=== PATIENT | male | born 1990 | race Caucasian/White ===

== ENCOUNTER 2018-07-31 09:05 | Emergency (ER) | payer BC, SELFPAY ==
[2018-07-31 09:43] VITALS: BP 163/100; PULSE 82; RESP 14; TEMP 36.6; O2SAT 98
--- NOTE | 2018-07-31 10:00 | ED.LOWEXIN ---
HPI - Extremity Injury (Lower) General Chief Complaint: Extremity Injury, Lower Stated Complaint: PAIN IN BOTH KNEES Time Seen by Provider: 07/31/18 09:07 Source: patient Mode of arrival: ambulatory Limitations: no limitations History of Present Illness HPI Narrative: Patient is a 27-year-old male here for evaluation of bilateral knee pain. Patient states that the pain started yesterday and got worse today. No specific injury. He has had some lower back pain. No prior pain in the knees in the past. He also complains of bright red blood per rectum. Also complains of problems breathing. He has been seen in the walk-in clinic for his back pain and also his problems breathing. He is on albuterol and QVAR. He has been taking Motrin for his back pain. No other joint pain. No fevers. No rashes. Uses a walking stick to get around. Related Data Home Medications Medication Instructions Recorded Confirmed multivitamin [Multiple Vitamins] 1 tab PO QDAY #0 07/31/16 07/20/18 citalopram 40 mg PO QDAY #0 09/17/16 07/20/18 [echinacea] #0 03/19/17 07/20/18 bupropion HCl [Wellbutrin XL] 150 mg PO QDAY #0 03/19/17 07/20/18 methylphenidate HCl [Concerta] 54 mg PO QAM #0 03/19/17 07/20/18 propranolol 20 mg PO #0 03/19/17 07/20/18 melatonin 3 mg PO HS #0 05/07/17 07/20/18 aripiprazole 2 mg tablet 2 mg PO DAILY 07/07/18 07/20/18 Previous Rx's Medication Instructions Recorded albuterol sulfate [Ventolin HFA] 1 puff INH QIDP PRN #1 ea 08/29/16 [VITAMIN D] 8,000 u PO QDAY #1 bot 09/10/16 pyridoxine (vitamin B6) [Vitamin 50 mg PO QDAY #30 tab 05/07/17 B-6] albuterol sulfate [Ventolin HFA] 2 puff IN SEE INSTRUCTIONS PRN #1 10/23/17 beclomethasone dipropionate 80 See Label Instructions INHALATION 01/05/18 mcg/actuation aerosol inhaler BID #1 inhalation albuterol sulfate HFA 90 2 puff INHALATION Q4-6H PRN #8.5 07/07/18 mcg/actuation aerosol inhaler gram acetaminophen-codeine 1 tab PO Q6H PRN #10 tab 07/31/18 [Tylenol-Codeine #3] benzonatate [Tessalon Perles] 100 mg PO TID PRN #14 cap 07/31/18 meloxicam [Mobic] 7.5 mg PO DAILY #60 tab 07/31/18 Allergies Allergy/AdvReac Type Severity Reaction Status Date / Time No Known Drug Allergies Allergy Unverified 07/20/18 11:56 Review of Systems Constitutional Denies fever(s) and Denies headache(s) ENT Ears, Nose, Mouth, and Throat: Denies vertigo, Denies dizziness and Denies headache(s) Cardiovascular Denies chest pain and Denies dyspnea Respiratory Denies dyspnea Gastrointestinal Gastrointestinal: Denies abdominal pain Comments: Bright red blood per rectum Genitourinary Denies dysuria Musculoskeletal Comments: Bilateral knee pain Integumentary/Breasts Denies lesions and Denies rash Neurologic Denies vertigo, Denies dizziness and Denies headache(s) Hematologic/Lymphatic Comments: Not on anticoagulation PFSH Medical History Healthy adult (Acute) Surgical History History of third molar tooth extraction Family History Brother Age: 44 Mental health disorder Father Age: 66 Diabetes mellitus Heart disease Hypertension Hyperlipidemia Mother Age: 59 COPD (chronic obstructive pulmonary disease) Social History Smoking Status: Never smoker Exam Initial Vital Signs Initial Vital Signs: Vital Signs Temperature 98 F 07/31/18 09:43 Pulse Rate 82 07/31/18 09:43 Respiratory Rate 14 07/31/18 09:43 Blood Pressure 163/100 H 07/31/18 09:43 Pulse Oximetry 98 07/31/18 09:43 Const General: cooperative, healthy appearing, comfortable, well developed and No well groomed Orientation: alert, awake and oriented x3 HENMT Head: normal to inspection and normocephalic GI Rectal Exam: heme negative stool Other: Internal hemorrhoids Skin Lesions: no lesions Rashes: no rashes Neuro General: alert, awake and oriented x3 Gait: normal gait Extrem Other: Bilateral knees with the same exam. ACL MCL PCL and LCL are all intact with functional testing. No tenderness to palpation of the quadriceps tendon or patellar tendon. No hamstring tenderness. No tenderness along the medial lateral joint line. Patient states that his pain is inside no effusions. Psych Appearance: grossly normal and well kempt Course Orders Ordered: Ketorolac Tromethamine (Toradol) 30 mg IM NOW ONE Stop: 07/31/18 10:01 Vital Signs - 8 hr 07/31/18 09:43 Temperature 98 F Pulse Rate 82 Respiratory Rate 14 Blood Pressure 163/100 H Pulse Oximetry 98 MDM - Extremity Injury (Lower) MDM Narrative Medical decision making narrative: Patient with multiple complaints. I do feel that his bilateral knee pain is secondary to his weight and also potentially mechanical changes with walking secondary to his lower back pain. He was given a shot of Toradol here in the emergency department. Will switch him from Motrin to Mobic. Patient also complaining of bright red blood per rectum. He did have an internal hemorrhoid on exam today and heme-negative stool. Will hold on further workup for now. Patient also complaining of a cough and shortness of breath. He currently has an albuterol and QVAR inhaler. Will send home with Edgar Linares. Tried to reassure patient that all of his symptoms today are not emergent. Gave him other ideas about exercise secondary to his knee pain. He stated that he has to wait until September in order to get in to see his primary doc he was given return precautions. Discharge Plan Departure Patient Disposition: Home Clinical Impression: Cough, Bilateral knee pain, BRBPR (bright red blood per rectum), Internal hemorrhoid Instructions: Arthritis (Alternative Therapy), Cough, DI for Arthritis Activity Restrictions/Additional Instructions: I recommend that you stop the Motrin/ibuprofen/Naprosyn or other nonsteroidal anti-inflammatories and start taking the Mobic like we discussed. You can try other modalities such as knee braces and ice like we discussed. I do recommend you may contact the primary doctor and get in to see them at their next available appointment to further discuss your symptoms. I do recommend that you stay as active as possible. Prescriptions: New acetaminophen-codeine [Tylenol-Codeine #3] 300-30 mg tablet 1 tab PO Q6H PRN (Reason: pain) Qty: 10 RF: 0 meloxicam [Mobic] 7.5 mg tablet 7.5 mg PO DAILY Qty: 60 RF: 0 benzonatate [Tessalon Perles] 100 mg capsule 100 mg PO TID PRN (Reason: cough) Qty: 14 RF: 0 No Action aripiprazole [Abilify] 2 mg tablet 2 mg PO DAILY RF: 0 albuterol sulfate 90 mcg/actuation HFA aerosol inhaler 2 puff INHALATION Q4-6H PRN (Reason: shortness of breath) Qty: 8.5 RF: 1 multivitamin [Multiple Vitamins] 1 EACH tablet 1 tab PO QDAY Qty: 0 RF: 0 albuterol sulfate [Ventolin HFA] 90 MCG/PUFF HFA aerosol inhaler 1 puff INH QIDP PRNQty: 1 RF: 3 [VITAMIN D] 8,000 u PO QDAY Qty: 1 RF: 3 citalopram 40 MG tablet 40 mg PO QDAY Qty: 0 RF: 0 methylphenidate HCl [Concerta] 54 MG tablet extended release 24hr 54 mg PO QAM Qty: 0 RF: 0 bupropion HCl [Wellbutrin XL] 150 MG tablet extended release 24 hr 150 mg PO QDAY Qty: 0 RF: 0 propranolol 20 MG tablet 20 mg PO Qty: 0 RF: 0 [echinacea] Qty: 0 RF: 0 melatonin 3 MG tablet 3 mg PO HS Qty: 0 RF: 0 pyridoxine (vitamin B6) [Vitamin B-6] 50 MG tablet 50 mg PO QDAY Qty: 30 RF: 5 albuterol sulfate [Ventolin HFA] 90 MCG/PUFF HFA aerosol inhaler 2 puff IN SEE INSTRUCTIONS PRNQty: 1 RF: 3 beclomethasone dipropionate [Qvar] 80 mcg/actuation aerosol See Label Instructions INHALATION BID Qty: 1 RF: 3
[2018-07-31] MEDS: KETOROLAC 60 MG/2 ML VIAL 30 MG IM (10:31)
--- NOTE | 2018-07-31 10:35 | PC.NURSE ---
pt reports, lower back pain for several weeks with bilateral lower leg radiating pain, lateral side. denies bowel.bladder issue. ambulate slow with cane , steady.
[2018-07-31 11:01] VITALS: BP 133/62; PULSE 62; RESP 15; O2SAT 100
== END 2018-07-31 11:09 | disposition home or self-care (01) ==
PROVIDERS: Emergency Provider Emergency Medicine
DX: R05 Cough (principal); M25.561 Pain in right knee; M25.562 Pain in left knee; K62.5 Hemorrhage of anus and rectum; K64.9 Unspecified hemorrhoids
CPT/HCPCS: 96372; 99282; 99283; J1885

== ENCOUNTER → 2018-08-18 10:27 | Outpatient (CLI) | payer BC, SELFPAY ==
--- NOTE | 2018-08-18 10:29 | DI.RAD.S_ITS ---
PROCEDURE: XR CHEST 2V INDICATIONS: persistent cough TECHNIQUE: 2 views of the chest were acquired. COMPARISON: [facility], , CHEST 2 VIEW, 05/07/2017, 11:47. FINDINGS: Surgical changes and devices: None. Lungs and pleura: Lungs are clear. No pleural effusions or pneumothorax. Mediastinum: Mediastinal contours are normal. Heart size is normal. Bones and chest wall: No suspicious bony abnormalities. Soft tissues appear unremarkable. IMPRESSION: No acute pulmonary pathology. Dictated by: Stanley Valdes M.D. on 08/18/2018 at 10:53 Approved by: Stanley Valdes M.D. on 08/18/2018 at 10:53
[2018-08-18 11:21] LABS: Add Manual Diff / Slide Review NO; Basophils Absolute Auto 200 /uL (0-100); Eosinophils Absolute Auto 800 /uL (0-450); Eosinophils Percent Auto 6.8 % (2-4); Hematocrit 47.1 % (41-53); Hemoglobin 15.5 g/dL (13.5-17.5); Lymphocytes Absolute Auto 3800 /uL (1100-4500); Mean Corpuscular HGB Conc 32.9 % (30-36); Mean Corpuscular Hemoglobin 28.1 PG (26-34); Mean Corpuscular Volume 85.4 fL (80-100); Monocytes Absolute Auto 1000 /uL (0-900); Monocytes Percent Auto 8.6 % (3-14); Neutrophils Absolute Auto 6000 /uL (1500-7000); Neutrophils Percent Auto 50.6 % (50-75); Platelet Count 399 X10^3/uL (150-400); Red Blood Cell Count 5.52 X10^6/uL (4.5-5.9); Red Cell Distribution Width 13.5 % (11.6-14.8); White Blood Cell Count 11.8 X10^3/uL (4.5-11.0)
[2018-08-18 11:29] LABS: D Dimer < 200 ng/mL (<230)
[2018-08-18 11:31] LABS: Alanine Aminotransferase 42 IU/L (21-72); Albumin 4.7 g/dL (3.5-5.0); Albumin Globulin Ratio 1.5 (1.0-2.8); Alkaline Phosphatase 81 U/L (38-126); Aspartate Aminotransferase 27 IU/L (17-59); BUN Creatinine Ratio 17.5 (6-22); Bilirubin Total 0.3 mg/dL (0.2-1.3); Blood Urea Nitrogen 14 mg/dL (9-20); Calcium 10.1 mg/dL (8.4-10.2); Carbon Dioxide 25 mmol/L (22-32); Chloride 103 mmol/L (98-107); Estimated Glomerular Filt Rate > 60.0 mL/min (>60); Globulin 3.1 g/dL (1.7-4.1); Glucose 89 mg/dL (70-100); HEMOLYSIS < 15 (0-50); Potassium 4.4 mmol/L (3.4-5.1); Sodium 141 mmol/L (137-145); Total Protein 7.8 g/dL (6.3-8.2)
== END ==
PROVIDERS: Visit Provider Physician Assistant
DX: R05 Cough (principal)
CPT/HCPCS: 36415; 71046; 80053; 85025; 85379

== ENCOUNTER → 2018-08-31 11:23 | Outpatient (CLI) | payer BC, SELFPAY ==
--- NOTE | 2018-08-31 11:25 | DI.RAD.S_ITS ---
PROCEDURE: XR LUMBAR SPINE 2-3V INDICATIONS: Lumbar radiculopathy TECHNIQUE: 3 views of the lumbar spine were acquired. COMPARISON: None. FINDINGS: Bones: 5 svm-tkq-jzbzagf vertebrae are present. There is normal bony alignment. No vertebral body compression fractures. No suspicious bony lesions. There is mild degenerative spurring at L3-L4 and L4-L5. Mild facet arthropathy at L4-L5 and L5-S1. Soft tissues: Overlying bowel gas pattern is normal. No suspicious soft tissue calcifications. IMPRESSION: Mild degenerative changes in lumbar spine. Dictated by: Trey Cardona M.D. on 08/31/2018 at 15:30 Approved by: Trey Cardona M.D. on 08/31/2018 at 15:33
== END ==
PROVIDERS: PCP Family Medicine; Visit Provider Family Medicine
DX: M47.26 Other spondylosis with radiculopathy, lumbar region (principal); M47.27 Other spondylosis with radiculopathy, lumbosacral region
CPT/HCPCS: 72100

== ENCOUNTER → 2019-02-19 08:51 | Outpatient (CLI) | payer BC, SELFPAY ==
[2019-02-19 11:08] LABS: BUN Creatinine Ratio 18.8 (6-22); Blood Urea Nitrogen 15 mg/dL (9-20); Calcium 9.2 mg/dL (8.4-10.2); Carbon Dioxide 30 mmol/L (22-32); Chloride 103 mmol/L (98-107); Estimated Glomerular Filt Rate > 60.0 mL/min (>60); Glucose 90 mg/dL (70-100); HEMOLYSIS < 15 (0-50); Potassium 3.7 mmol/L (3.4-5.1); Sodium 140 mmol/L (137-145)
[2019-02-19 11:27] LABS: Hemoglobin A1C% w Est Avg Glu 5.3 % (4.0-6.0)
== END ==
PROVIDERS: PCP Family Medicine; Visit Provider Family Medicine
DX: E66.9 Obesity, unspecified (principal)
CPT/HCPCS: 36415; 80048; 83036

== ENCOUNTER → 2019-06-14 13:28 | Outpatient (CLI) | payer OTHER, SELFPAY ==
--- NOTE | 2019-06-14 13:29 | DI.RAD.S_ITS ---
PROCEDURE: XR KNEE LT 3V INDICATIONS: fall, pain, swelling, r/o fx/effusion TECHNIQUE: 3 views of the knee were acquired. COMPARISON: None. FINDINGS: Bones: No fractures or dislocations. No suspicious bony lesions. Soft tissues: No joint effusion. No suspicious soft tissue calcifications. IMPRESSION: No fracture or dislocation. Dictated by: Trey Cardona M.D. on 06/14/2019 at 16:36 Approved by: Trey Cardona M.D. on 06/14/2019 at 16:37
== END ==
PROVIDERS: PCP Family Medicine; Visit Provider Physician Assistant
DX: M25.562 Pain in left knee (principal)
CPT/HCPCS: 73562

== ENCOUNTER → 2020-08-15 11:19 | Outpatient (CLI) | payer BC, SELFPAY ==
[2020-08-15 11:51] LABS: Add Manual Diff / Slide Review NO; Basophils Absolute Auto 200 /uL (0-100); Basophils Percent Auto 1.2 % (0-2); Eosinophils Absolute Auto 500 /uL (0-450); Hemoglobin 14.6 g/dL (13.5-17.5); Lymphocytes Absolute Auto 3200 /uL (1100-4500); Lymphocytes Percent Auto 25.7 % (25-40); Mean Corpuscular HGB Conc 32.5 % (30-36); Mean Corpuscular Hemoglobin 27.7 PG (26-34); Mean Corpuscular Volume 85.3 fL (80-100); Monocytes Absolute Auto 1100 /uL (0-900); Monocytes Percent Auto 8.4 % (3-14); Neutrophils Absolute Auto 7600 /uL (1500-7000); Neutrophils Percent Auto 60.7 % (50-75); Platelet Count 404 X10^3/uL (150-400); Red Blood Cell Count 5.28 X10^6/uL (4.5-5.9); Red Cell Distribution Width 13.2 % (11.6-14.8); White Blood Cell Count 12.6 X10^3/uL (4.5-11.0)
[2020-08-15 11:53] LABS: Hemoglobin A1C% w Est Avg Glu 5.7 % (4.0-6.0)
[2020-08-15 12:00] LABS: Alanine Aminotransferase 35 IU/L (<50); Albumin 4.4 g/dL (3.5-5.0); Albumin Globulin Ratio 1.3 (1.0-2.8); Alkaline Phosphatase 93 U/L (38-126); Aspartate Aminotransferase 31 IU/L (17-59); Bilirubin Total 0.5 mg/dL (0.2-1.3); Blood Urea Nitrogen 15 mg/dL (9-20); Calcium 8.8 mg/dL (8.4-10.2); Carbon Dioxide 28 mmol/L (22-32); Chloride 104 mmol/L (98-107); Cholesterol 170 mg/dL (140-199); Estimated Glomerular Filt Rate > 60.0 mL/min (>60); Globulin 3.4 g/dL (1.7-4.1); Glucose 97 mg/dL (70-100); HDL Cholesterol 30 mg/dL (40-60); HEMOLYSIS < 15 (0-50); LDL Cholesterol Calculated 114 mg/dL (<100); Potassium 3.9 mmol/L (3.4-5.1); Sodium 138 mmol/L (137-145); Total Protein 7.8 g/dL (6.3-8.2); Triglycerides 129 mg/dL (35-150)
[2020-08-15 12:40] LABS: TSH w/ Reflex to FT4 2.13 uIU/mL (0.47-4.68)
== END ==
PROVIDERS: PCP Family Medicine; Referring Provider Family Medicine; Visit Provider Family Medicine
DX: Z00.00 Encounter for general adult medical examination without abnormal findings (principal); E66.09 Other obesity due to excess calories; R73.03 Prediabetes; Z13.29 Encounter for screening for other suspected endocrine disorder
CPT/HCPCS: 36415; 80053; 80061; 83036; 84443; 85025

== ENCOUNTER → 2020-08-21 09:32 | Outpatient (CLI) | payer BC, SELFPAY ==
[2020-08-21 10:26] LABS: Add Manual Diff / Slide Review NO; Basophils Absolute Auto 100 /uL (0-100); Basophils Percent Auto 1.4 % (0-2); Eosinophils Absolute Auto 300 /uL (0-450); Eosinophils Percent Auto 2.7 % (2-4); Hematocrit 41.1 % (41-53); Hemoglobin 13.5 g/dL (13.5-17.5); Lymphocytes Absolute Auto 3000 /uL (1100-4500); Lymphocytes Percent Auto 28.7 % (25-40); Mean Corpuscular HGB Conc 32.9 % (30-36); Mean Corpuscular Hemoglobin 28.1 PG (26-34); Mean Corpuscular Volume 85.3 fL (80-100); Monocytes Absolute Auto 900 /uL (0-900); Monocytes Percent Auto 8.8 % (3-14); Neutrophils Absolute Auto 6100 /uL (1500-7000); Neutrophils Percent Auto 58.4 % (50-75); Platelet Count 368 X10^3/uL (150-400); Red Blood Cell Count 4.82 X10^6/uL (4.5-5.9); Red Cell Distribution Width 13.6 % (11.6-14.8); White Blood Cell Count 10.5 X10^3/uL (4.5-11.0)
== END ==
PROVIDERS: PCP Family Medicine; Referring Provider Family Medicine; Visit Provider Family Medicine
DX: D72.829 Elevated white blood cell count, unspecified (principal)
CPT/HCPCS: 36415; 85025

== ENCOUNTER 2021-04-16 10:42 | Emergency (ER) | payer BC, SELFPAY ==
[2021-04-16 11:14] VITALS: BP 171/97; PULSE 70; RESP 16; TEMP 36.6; O2SAT 97; BMI 55.5
--- NOTE | 2021-04-16 11:19 | ED_ITS ---
HPI - General Adult General Chief complaint: Psychiatric Symptoms Stated complaint: Mental health crisis- sent by [facility] Time Seen by Provider: 04/16/21 10:58 Source: patient Mode of arrival: Ambulatory History of Present Illness HPI narrative: Patient is a 30-year-old male. History of anxiety and depression. Does see a mental health provider. Is on medications for this. States he is taking his medications. Went to the walk-in clinic for issues that of all this morning. He states that over the past several days/weeks he has had an increasing issues with depression and anxiety. This morning because of work he had an episode that caused his anxiety to peak. This also caused his issues with occasional suicidal ideation to become worse as well. He did have a specific plan. He talked about jumping off of a bridge. Talked about shooting himself. He went to the walk-in clinic cosigned the emergency department. He states that his suicide ideation has lessened since it was this morning. Related Data Home Medications Medication Instructions Recorded Confirmed multivitamin (Multiple Vitamins) 1 tab PO QDAY #0 07/31/16 11/20/20 citalopram 40 mg tablet 40 mg PO QDAY #0 09/17/16 11/20/20 [echinacea] #0 03/19/17 11/20/20 melatonin 3 mg tablet 3 mg PO HS #0 05/07/17 11/20/20 glucosamine HCl 500 mg tablet 500 mg PO DAILY tab 02/16/19 11/20/20 aripiprazole 2 mg tablet 2 mg PO DAILY 09/13/19 11/20/20 methylphenidate HCl 54 mg 54 mg PO DAILY 09/13/19 11/20/20 tablet,extended release 24 hr (Concerta) propranolol 20 mg tablet 20 mg PO BID 09/13/19 11/20/20 Previous Rx's Medication Instructions Recorded [VITAMIN D] 8,000 u PO QDAY #1 bot 09/10/16 albuterol sulfate 90 mcg/actuation 2 puff INHALATION Q4-6H PRN #8.5 09/13/19 aerosol inhaler gram beclomethasone dipropionate 80 See Rx Instructions INHALATION BID 09/13/19 mcg/actuation aerosol inhaler #1 inhalation Allergies Allergy/AdvReac Type Severity Reaction Status Date / Time No Known Drug Allergies Allergy Verified 11/20/20 10:08 Review of Systems Cardiovascular Cardiovascular: Reports system reviewed and no additional complaints, except as documented Respiratory Respiratory: Reports system reviewed and no additional complaints, except as documented Gastrointestinal Gastrointestinal: Reports system reviewed and no additional complaints, except as documented Psychiatric Psychiatric: Reports system reviewed and no additional complaints, except as documented Patient History Medical History Family history of diabetes mellitus Feeling stressed out Healthy adult IBS (irritable bowel syndrome) Seasonal allergic rhinitis Surgical History History of third molar tooth extraction Family History Brother Age: 47 Mental health disorder Father Age: 69 Diabetes mellitus Heart disease Hypertension Hyperlipidemia Mother Age: 62 COPD (chronic obstructive pulmonary disease) Social History Smoking Status: Never smoker Smoking Status: Never smoker Exam Initial Vital Signs Initial Vital Signs: Vital Signs Temperature 97.8 F 04/16/21 11:14 Pulse Rate 70 04/16/21 11:14 Respiratory Rate 16 04/16/21 11:14 Blood Pressure 171/97 H 04/16/21 11:14 Pulse Oximetry 97 04/16/21 11:14 HENMT Head: normal to inspection and normocephalic Resp Effort & Inspection: normal respiratory effort Auscultation: clear to auscultation bilaterally Cardio Rate: regular rate Rhythm: regular rhythm Skin General: no rashes or lesions noted Neuro General: patient alert and patient awake Psych Appearance: grossly normal and well kempt Mental Status: mental status grossly normal Speech and Movement: speech and movement normal Mood: not anxious Affect: sad Attitude: cooperative Thought Process: normal Thought Content: no homicidality and suicidality Judgment: judgment good Course Vital Signs Vital signs: Vital Signs - 8 hr 04/16/21 11:14 Temperature 97.8 F Pulse Rate 70 Respiratory Rate 16 Blood Pressure 171/97 H Pulse Oximetry 97 Medical Decision Making MDM Narrative Medical decision making narrative: Patient is not currently suicidal. No signs of intoxication. Is alert oriented x3. GCS of 15. Does not want admitted to the hospital. Patient was seen by social work. He was able to schedule appointment with his mental health provider tomorrow. He feels safe at home. He is here with his uncle who is able to provide him support at home. Patient was given return precautions and follow-up instructions. He expressed understanding and agreement. Discharge Plan Departure Patient Disposition: Home Clinical Impression: Depression Instructions: Depression Activity Restrictions/Additional Instructions: Continue all of your medications as directed. Keep your appointment that yes scheduled with your mental health provider tomorrow. Return to the emergency department for any new or worsening symptoms Prescriptions: No Action glucosamine HCl 500 mg tablet 500 mg PO DAILY RF: 0 multivitamin [Multiple Vitamins] 1 EACH tablet 1 tab PO QDAY Qty: 0 RF: 0 [VITAMIN D] 8,000 u PO QDAY Qty: 1 RF: 3 citalopram 40 MG tablet 40 mg PO QDAY Qty: 0 RF: 0 [echinacea] Qty: 0 RF: 0 melatonin 3 MG tablet 3 mg PO HS Qty: 0 RF: 0 methylphenidate HCl [Concerta] 54 mg tablet extended release 24hr 54 mg PO DAILY RF: 0 aripiprazole 2 mg tablet 2 mg PO DAILY RF: 0 propranolol 20 mg tablet 20 mg PO BID RF: 0 albuterol sulfate 90 mcg/actuation HFA aerosol inhaler 2 puff INHALATION Q4-6H PRN (Reason: shortness of breath) Qty: 8.5 RF: 5 beclomethasone dipropionate 80 mcg/actuation aerosol See Rx Instructions INHALATION BID Qty: 1 RF: 5 Referrals: Ward Dunaway DO [Primary Care Provider] -
[2021-04-16 13:07] VITALS: BP 146/76; PULSE 69; O2SAT 98
--- NOTE | 2021-04-16 13:20 | CM.SWNOTE ---
LOCKER ROOM CLERK Assessment LOCKER ROOM CLERK - School Treasurer Assessment LOCKER ROOM CLERK/School Treasurer Assessment Time Spent with Patient Start date 04/16/21 Visit Start Time 12:05 End date 04/16/21 Visit End Time 12:35 Total time Care Management spent on 30 patient visit-in minutes Mental Health Screening Include Onset, Duration, Intensity Presenting Problem Patient presents to ED with concern for having a depressive, panic episode at work this morning. Patient endorsed SI with plan at triage but denies current SI with LOCKER ROOM CLERK. Precipitating Event(s) Patient endorses stress at work, not feeling supported at work, working nights, starting school, and not getting enough sleep. Patient Strengths Patient sought help today, scheduled MH outpatient appt for tomorrow and has good family supports. Current Behavioral Health Provider(s) Patient sees Psychiatrist Dr. Marcio Keyes, Provider, Ph. # David Guerra D.O at [facility] (Ph. # [phone]) Psych. Hx Mental Health and Chemical Patient has hx of depression, Dependency anxiety, & SI Patient endorses less than weekly ETOH use and denies other substances. Patient endorses he is prescribed Citaloproam, Propranolol and Methylphenidate Family Hx of Behavioral Abuse Patient endorses hx of having a rift and misunderstanding with his brother. Psychiatric Hospitalizations (date(s)/ No Hx location) Psychosocial information & Support Patient is 30 y/o male who Systems resides in [place]. Patient endorses his uncle who is present today, his mother and brother as supports. School/Work Patient works at [employer] in [place] Legal Concerns Legal Matters - Outstanding Issues None reported Mental Status Orientation (Person/Place/Time) A/Ox4 Stated Mood ok Affect (Congruent with Mood?) flat, congruent with mood Thought Content - Specify/Describe Patient denies thought Obsessions, Delusions, Hallucinations processes Thought Processes (Funuiwr-Kcdmkfwr-Iaek coherent Jxqcnjeq-Xbbcxvoa-Zrkfbnuxmx- Poydwvqjrkeqmy-Adisqvm-Xxwbbqliuolx- Thought Blocking) Speech (Mpqoch-Btpx-Kdxcawa-Rapid-Soft- normal/rapid with some Loud-Pressured) stuttering Motor (Vxwoqv-Tscjssdrp-Mivb-Other) normal, not fully assessed Insight (Bmge-Ansy-Rvbe/Limited) fair Judgement (Zten-Veps-Izwy/Limited) fair Impulse Control (Adequate-Impaired) Adequate Memory (Rqpdolctc-Vwwrdu-Gnufwe, Intact, not formally assessed Impaired-Intact) Concentration (Intact-Impaired) Intact Attention (Intact-Impaired) Intact Behavior (Appropriate-Inappropriate) Appropriate Additional Comment Patient is calm and communicative Risk Assessment Suicidal Ideation (Plan) Yes Homicidal Ideation (Plan) No Comment Patient denies HI and patient denies current SI. Patient endorses his safety returning home with family support. Patient endorses initial thoughts of killing self this morning and that is why he came to the to the walk in clinic/ED for medical attention. Patient did not inform LOCKER ROOM CLERK of plans but previously informed Walk in clinic provider plans of using a gun or hanging self. Patient informs LOCKER ROOM CLERK that he does not want to discuss previous plans because he does not think of it. Patient endorses that his uncle has taken his guns away and he has no means to act on plans. Intervention Intervention LOCKER ROOM CLERK enters room to meet with patient. Patient endorses having a breakdown at work today and crying with increasing depression, anxiety and SI. Patient endorses he left work to seek medical attention. Patient endorses such anxiety and depression has been ongoing through out his life and he is usually able to manage it at work. Patient endorses increased stresses at work that have brought on today's episode. Patient endorses he has an appt tomorrow with his therapist Dr. Guerra and has continued follow up in the next few weeks. Patient endorses ongoing family supports and that he is aware of crisis contacts available to him. LOCKER ROOM CLERK discusses inpatient hospitalization as an option for patient and patient denies wanting this level of treatment. LOCKER ROOM CLERK discusses safety planning with patient and patient informs LOCKER ROOM CLERK that his uncle is present in the waiting room. Patient provides consent for LOCKER ROOM CLERK to bring his uncle to the room. Uncle endorses he is an ongoing support to patient and checks on him regularly. Patient and uncle made plans this evening and tomorrow evening. Patient endorses he has a job interview for a new job tomorrow to reduce stress caused by current employer. Patient endorses safety and denies current SI. LOCKER ROOM CLERK encourages patient to return to the ED if symptoms increase , reach out to his supports and crisis contacts. It is the opinion of this LOCKER ROOM CLERK that patient is safe to d/c to home with family support and outpatient provider follow up tomorrow. LOCKER ROOM CLERK reviews the above with ED provider Dr. Sotomayor who indicates agreement and understanding. Plan RA Plan Patient to d/c to home when medically clear with family support and safety planning and f/u appt with Dr. Guerra tomorrow. LOCKER ROOM CLERK calls patient's psychiatrist Dr. Guerra with patient's consent and endorses patient's presentation to the ED. It is reported that patient has appt with Dr. Guerra tomorrow at 11AM. DAVON Gibson
== END 2021-04-16 13:12 | disposition home or self-care (01) ==
PROVIDERS: Emergency Provider Emergency Medicine; PCP Family Medicine
DX: F32.9 Major depressive disorder, single episode, unspecified (principal)
CPT/HCPCS: 99283